=== PATIENT | male | born 1950 | race Hispanic/Latino ===

== ENCOUNTER 2019-03-07 09:11 | Outpatient (CLI) | payer MEDICARE ==
--- NOTE | 2019-03-07 13:35 | MRI ---
MRI PROSTATE WITH AND WITHOUT CONTRAST: HISTORY: Prostate cancer status post biopsy two months ago. COMPARISON: None. TECHNIQUE: Multiplanar, multisequence MRI images were obtained of the prostate with and without contrast. FINDINGS: There is moderate hypertrophy of the central gland, consistent with BPH. The central gland is more pr ominent near the base and extending toward the seminal vesicles, into the region of the peripheral zo ne. There is a 1.5 cm area of low T2 signal just to the right of midline, within the central gland, n ear the base of the prostate. No other suspicious low T2 signal lesions are seen within the central canal or peripheral zone of the prostate. No restricted diffusion is seen in the peripheral zone of the prostate. No low signal is seen in the ADC map in the peripheral zone of the prostate. The seminal vesicles appear intact. The neurovascular bundles are intact. No pelvic adenopathy is se en. No marrow signal abnormality is present. IMPRESSION: BI-RADS category 4-High likelihood that a clinically significant cancer is present. POS: TPC
[2019-03-07] MEDS ORDERED: Gadobenate Dimeglumine 529 MG/1 ML (20ML VIAL) ONE (18:21)
== END 2019-03-07 09:12 | disposition home or self-care (01) ==
LOC: TBSIIMAG 09:11
PROVIDERS: ATTEND Urology
DX: C61 Malignant neoplasm of prostate (principal)
CPT/HCPCS: 72197; 81001; 82565; 87086; A9577

== ENCOUNTER 2019-04-15 09:41 | Outpatient (CLI) | payer MEDICARE ==
--- NOTE | 2019-04-15 10:58 | CT ---
CT ABDOMEN AND PELVIS WITH AND WITHOUT IV CONTRAST 04/15/2019 CLINICAL INFORMATION: Neoplasm of prostate gland. COMPARISON: None. Technique: Multiple contiguous axial CT images are obtained through the abdomen and pelvis with IV contrast. Cor onal reformatted images are provided. FINDINGS: Lower Chest: Mild dependent bibasilar atelectasis is present. A 5 mm noncalcified pulmonary nodule is seen in the right middle lobe which is too small to characterize. No additional pulmonary nodule or mass is seen. There is no pleural effusion identified. Vessels: There is minimal atherosclerotic plaque and calcification in the abdominal aorta. The abdomi nal aorta is normal in caliber. Abdomen: Portal vein:Patent Gallbladder: Within normal limits for CT imaging. Liver: within normal limits. Spleen: within normal limits. Pancreas: within normal limits. Adrenals: within normal limits. Kidneys: within normal limits. No renal or ureteral calculi are seen bilaterally, and there is no hyd ronephrosis. Bowel: Multiple colonic diverticula are seen in the sigmoid colon. Small amount of retained fecal mat erial seen in the colon. Loops of small bowel are normal in caliber. There is a large gas-filled duodenal diverticulum involving the third portion of the duodenum. Appendix: The appendix is visualized and normal in caliber. Peritoneum: No ascites or free air; no fluid collection. Mesentery and Retroperitoneum: No enlarged mesenteric or retroperitoneal lymph nodes. Abdominal Wall: within normal limits. Pelvis: Reproductive Organs: Prostate gland is mildly heterogeneous in appearance with small subcentimeter lo w-density focus in the right aspect of the prostate gland. The prostate gland was better evaluated on MRI pelvis on 03/07/2019. Calcifications are seen in the prostate gland. Pelvis within normal limits. Bladder: Mild mass effect on the posterior inferior aspect urinary bladder. The urinary bladder other leary demonstrates a normal CT appearance. Bones: Multilevel degenerative changes are seen in the spine. No suspicious lytic or sclerotic osseou s lesions are identified. IMPRESSION: 1. Too small to characterize subcentimeter pulmonary nodule right middle lobe. 2. No renal or ureteral calculi are seen bilaterally. 3. Heterogeneity of the prostate gland. Prostate gland is better evaluated on MRI pelvis on 03/07/2019 . 4. Colonic diverticulosis. 5. No evidence of lymphadenopathy, and no suspicious lytic or sclerotic osseous lesions are seen.
--- NOTE | 2019-04-15 14:31 | NM ---
WHOLE BODY BONE SCAN: HISTORY: Malignant neoplasm of prostate. RADIOPHARMACEUTICAL: Technetium 99m MDP 29 millicuries injected intravenously. FINDINGS: Increased uptake in the shoulders, elbows, wrists, hands, knees, ankles and feet is consistent with degenerative changes. Mildly increased uptake on the right at the L5-S1 level is consistent with the degenerative changes seen on the CT scan of the same date. No other abnormal areas of tracer localiza tion are seen. Tracer excretion through the kidneys is within normal limits. IMPRESSION: No scintigraphic evidence of osseous metastatic disease. POS: OFF
== END 2019-04-15 09:42 | disposition home or self-care (01) ==
LOC: CT 09:41
PROVIDERS: ATTEND Urology
DX: C61 Malignant neoplasm of prostate (principal); R91.8 Other nonspecific abnormal finding of lung field; K57.30 Diverticulosis of large intestine without perforation or abscess without bleeding
CPT/HCPCS: 74178; 78306; 82565; A9503

== ENCOUNTER 2019-11-01 07:05 | Outpatient (CLI) | payer MEDICARE, OTHER ==
[2019-11-01 12:57] LABS: Bacteria/HPF None Seen HPF (None Seen); Bilirubin Negative (Negative); Blood, Urine Trace (Negative); Clarity Clear (Clear); Glucose, Urine (Dipstick) Normal (Negative); Leukocyte Negative Leu/uL (Negative); Nitrite Negative (Negative); Protein, Urine (Dipstick) Negative (Neg-Trace); RBC/HPF 0-3 HPF (0-3); Squamous Epithelial None Seen HPF (0-3); Urobilinogen Normal mg/dL (Less than 2); WBC/HPF 0-3 HPF (0-3)
[2019-11-01 12:58] LABS: #Eosinphils 0.1 thou/uL (0.0-0.7); #Lymphocytes 1.6 thou/uL (1.20-3.40); #Monocytes 0.7 thou/uL (0.11-0.59); #Neutrophils 6.9 thou/uL (1.40-6.50); %Eosinophils 1.4 % (0.0-10.0); %Lymphocytes 17.5 % (21.0-51.0); %Monocytes 6.9 % (0.0-10.0); %Neutrophils 74.2 % (42.0-75.0); Hemoglobin 14.8 g/dL (14.0-18.0); Mean Corpuscular HGB CONC 32.5 g/dL (32.0-36.0); Mean Corpuscular Hemoglobin 28.7 pg (27.0-31.0); Mean Corpuscular Volume 88.4 fL (78.0-98.0); Mean Platelet Volume 6.9 fL (7.4-10.4); Platelet Count 279 thou/uL (130-400); RBC Distribution Width 13.7 % (11.5-14.5); Red Blood Cell (RBC) Count 5.15 mill/uL (4.70-6.10); White Blood Cell (WBC) Count 9.3 thou/uL (4.8-10.8)
[2019-11-01 13:02] LABS: INR-International Normal Ratio 0.8; Prothrombin Time 11.5 sec (12.0-14.7)
[2019-11-01 13:03] LABS: PTT 30.8 SEC (22.9-36.1)
[2019-11-01 13:22] LABS: Anion Gap 12 mmol/L (10-20); BUN (Urea Nitrogen) 15 mg/dL (8.4-25.7); Calc. Creatinine Clearance 0 mL/min (70-130); Calcium 9.1 mg/dL (7.8-10.44); Carbon Dioxide 25 mmol/L (23-31); Chloride 107 mmol/L (98-107); Estimated GFR-MDRD 71; Glucose 96 mg/dL (83-110); Potassium 3.9 mmol/L (3.5-5.1); Sodium 140 mmol/L (136-145)
[2019-11-01 19:40] LABS: SARS-CoV-2 MS2 Positive; SARS-CoV-2 N Gene Negative; SARS-CoV-2 S Gene Negative; SARS-CoV-2 orf1ab Negative
--- NOTE | 2019-11-08 23:26 | EKG ---
Test Reason : Blood Pressure : / mmHG Vent. Rate : 068 BPM Atrial Rate : 068 BPM P-R Int : 142 ms QRS Dur : 082 ms QT Int : 394 ms P-R-T Axes : 045 020 -04 degrees QTc Int : 418 ms Normal sinus rhythm Normal ECG No previous ECGs available Confirmed by Abilio VALDIVIA ([id number]) on 11/08/2019 11:26:17 PM Referred By: ESTEPHANIA Confirmed By:Abilio VALDIVIA
== END 2019-11-01 07:06 | disposition home or self-care (01) ==
LOC: LABBT 07:05
PROVIDERS: ATTEND Urology
DX: Z01.818 Encounter for other preprocedural examination (principal); Z23 Encounter for immunization; Z11.59 Encounter for screening for other viral diseases; C61 Malignant neoplasm of prostate; E78.2 Mixed hyperlipidemia; R35.1 Nocturia; N40.1 Benign prostatic hyperplasia with lower urinary tract symptoms; F10.10 Alcohol abuse, uncomplicated; F41.8 Other specified anxiety disorders; M17.10 Unilateral primary osteoarthritis, unspecified knee
CPT/HCPCS: 80048; 81001; 85025; 85610; 85730; 87086; 93005; U0003; 87635; 93010

== ENCOUNTER 2019-11-06 05:34 | Day surgery (SDC) | payer MEDICARE ==
[2019-11-01 11:21] VITALS: BMI 27.6
[2019-11-06] MEDS ORDERED: Levofloxacin 500 mg/D5W 100 ml Premix Bag ONE (06:33)
[2019-11-06] MEDS ORDERED: Fentanyl 100 MCG/2 ML VIAL ONE (08:11)
--- NOTE | 2019-11-06 09:12 | OP ---
DATE OF PROCEDURE: 11/06/2019 PREOPERATIVE DIAGNOSES: 1. A 69-year-old male with Rahel Score 3 + 4 prostate cancer. 2. History of benign prostatic hyperplasia. POSTOPERATIVE DIAGNOSES: 1. A 69-year-old male with Rahel Score 3 + 4 prostate cancer. 2. History of benign prostatic hyperplasia. PROCEDURES PERFORMED: Cystoscopy, UroLift implant x4. ANESTHESIA: TIVA. COMPLICATIONS: None apparent. DISPOSITION: To recovery room in stable condition. INDICATIONS FOR PROCEDURE AND HISTORY: Mr. Walker is a 69-year-old male with history of BPH, on dual medical therapy, also diagnosed with prostate cancer. He is scheduled for radiation treatment and presents today for UroLift treatment for BPH component. Risks and complications of the procedures have been discussed with him in detail including, but not limited to, bleeding, pain, infection, injury to adjacent organs, urosepsis, alternatives and treatment option including TURP, observation with medical treatment reviewed with him in detail. All questions answered to his satisfaction, he desired to proceed without reservation. DESCRIPTION OF PROCEDURE: After an informed consent was signed, the patient was taken to the operating room, placed in a dorsal lithotomy position with the genital area prepped and draped in the usual surgical sterile fashion. A 21-Armenian cystoscope was utilized for cystoscopy, which demonstrated bilobar hyperplasia of the prostate. Bladder was inspected, which demonstrated no evidence of bladder stone, calculus, or tumor of concern. UOs are about 3 to 4 mm proximal to the bladder neck. At this time, we transitioned to UroLift cystoscope device with a visual obturator. The implant was placed on the left lateral lobe first, taken care to stay 1.5 cm proximal to the bladder neck. With total of 4 implants, two on each side, we created a nice open anterior channel. There was minimal bleeding noted. He tolerated the procedure well. He was transported to the recovery room in stable condition and will undergo voiding trial. He was discharged with ciprofloxacin for 5 days, Azo p.r.n. He will see me tomorrow for PVR assessment. Job ID: [id number]
[2019-11-06] MEDS ORDERED: Phenazopyridine HCl 97.5 MG TABLET ONE (09:35)
[2019-11-06] MEDS ORDERED: PROPOFOL 200 MG/20 ML VIAL ONE (12:16)
== END 2019-11-06 10:20 | disposition home or self-care (01) ==
LOC: SDC 05:34
PROVIDERS: ATTEND Urology
PROC: 0T7D8DZ Dilation of Urethra with Intraluminal Device, Via Natural or Artificial Opening Endoscopic (ICD-10-PCS; principal; 2019-11-06)
DX: N40.1 Benign prostatic hyperplasia with lower urinary tract symptoms (principal); R35.0 Frequency of micturition; R35.1 Nocturia; R39.11 Hesitancy of micturition; C61 Malignant neoplasm of prostate; I10 Essential (primary) hypertension; M17.10 Unilateral primary osteoarthritis, unspecified knee; E78.2 Mixed hyperlipidemia; F41.8 Other specified anxiety disorders; F10.10 Alcohol abuse, uncomplicated; Z87.891 Personal history of nicotine dependence; Z79.82 Long term (current) use of aspirin; Z79.899 Other long term (current) drug therapy
CPT/HCPCS: C1889; J1956; J2704; J3010